=== PATIENT | male | born 1985 | race Caucasian/White ===

== ENCOUNTER 2019-05-24 18:57 | Emergency (ER) | payer BC ==
[~2019-05-24] VITALS: Ht 172.7 cm; Wt 93.0 kg
[2019-05-24 19:13] VITALS: BP 147/102
[2019-05-24] MEDS ORDERED: NORCO 5-325 TA1 EAC1 PO (20:27)
== END 2019-05-24 20:51 | disposition home or self-care (01) ==
LOC: ER 18:57
DX: S42.032A Displaced fracture of lateral end of left clavicle, initial encounter for closed fracture (principal); V29.49XA Motorcycle driver injured in collision with other motor vehicles in traffic accident, initial encounter; Y93.89 Activity, other specified; Y92.89 Other specified places as the place of occurrence of the external cause; Y99.8 Other external cause status

== ENCOUNTER 2019-06-02 11:33 | Emergency (ER) | payer BC ==
[~2019-06-02] VITALS: Ht 172.7 cm; Wt 93.0 kg
[~2019-06-02 11:33] MED LIST: NORCO 5-325 TA1 EAC1 PO
[2019-06-02 11:36] VITALS: BP 136/92
[2019-06-02] MEDS ORDERED: IBU600 MG PO (11:40)
== END 2019-06-02 12:30 | disposition home or self-care (01) ==
LOC: ER 11:33
DX: R20.0 Anesthesia of skin (principal); R20.2 Paresthesia of skin; M25.512 Pain in left shoulder; Z79.899 Other long term (current) drug therapy